=== PATIENT | male | born 1965 | race Hispanic/Latino ===

== ENCOUNTER 2024-11-15 13:56 | Inpatient (IN) | payer BC ==
--- OUTSIDE RECORDS SUMMARY | 2024-11-15 14:00 | XMS REPORT | Continuity of Care Document ---
Author Name Unknown Address [address] [facility] [address] [place] [address] Organization [facility] [place] Address [address] [facility] [address] [place] [address] Care Team Providers Care Licensed Optical Dispenser Name Role Phone Liza Rivas NP Primary Care Physician + HAY WILLARD Attending Clinician Shahana Willard III, MD, Hay [facility] HAY WILLARD Admitting Clinician Shahana Willard III, MD, Hay [facility]mitting [facility] Payers Payer Name Policy Type Policy Number Effective Date Expirati on Date Source BCBS COMM [id number] 2023 00:00:00 Problems Condition Name Condition Details Condition Category Status Onset Date Resolution Date Last Treatment Date Treating Clinician Comments Source HTN (hypertens ion) HTN (hypertens ion) Disease Active 2023-02 00:00: 00 Dereck Kelley Perforatio n of left tympanic membrane Perforatio n of left tympanic membrane Disease Active Dereck Kelley Conductive hearing loss, unilateral , left ear, with unrestrict ed hearing on the contralate ral side Conductive hearing loss, unilateral , left ear, with unrestrict ed hearing on the contralate ral side Disease Active Dereck Kelley Social History Social Habit Start Date Stop Date Quantity Comments Source Sexual orientation 2024-01-22 10:49:52 Heterosexual (finding) Adam Kelley Gender identity 2023-04-30 04:48:49 Identifies as male gender (finding) [facility] Alcoholic beverage intake 2024-01-22 00:00:00 2024-01-22 00:00:00 .29 /d [facility] History of Social function 2024-01-22 00:00:00 2024-01-22 00:00:00 [facility] Tobacco use and exposure 2024-01-15 00:00:00 2024-01-15 00:00:00 Smokeless tobacco non-user [facility] Smoking Status Start Date Stop Date Source Never smoked tobacco Dereck Mcgovern [facility] Medications Ordered Medication Name Filled Medication Name Start Date Stop Date Current Medication? Ordering Clinician Indication Dosage Frequency Signature (SIG) Comments Components Source HYDROcodone -acetaminop hen (Lowgap) 5-325 MG per tablet 1 tablet HYDROcodone -acetaminop hen (Lowgap) 5-325 MG per tablet 1 tablet 2023-02 15:45: 00 01-21 15:43 :00 No 1{tbl} 1 tablet, Oral, Once, On Mon01/22/24 at 1545, For 1 dose, Recovery (only) Dereck Kelley glucagon injection 1 mg glucagon injection 1 mg 2023-02 15:02: 41 Yes 1mg 1 mg, Intramuscu lar, As needed, For BG < 70 mg/dL if no IV access and patient is either Unconsciou s, unable to swallow or npo, Starting on Mon01/22/24 at 1502, Recovery (only), For BG < 70 mg/dL if no IV access and patient is either Unconsciou s, unable to swallow or npo and notify MD. Dereck Kelley dextrose 50 % solution 12.5 g dextrose 50 % solution 12.5 g 2023-02 15:02: 41 Yes 12.5g 12.5 g, Intravenou s, As needed, low blood sugar, if Blood Glucose 51- 69 mg/dL, Starting on Mon01/22/24 at 1502, Recovery (only), For BG 51-69 mg/dL and patient UNCONSCIOU S OR UNABLE TO SWALLOW OR NPO: Give 25 mL of D50W IV push and notify MD. Dereck Kelley ondansetron (Zofran) injection 4 mg ondansetron (Zofran) injection 4 mg 2023-02 15:02: 41 Yes 4mg 4 mg, Intravenou s, Once as needed, nausea, vomiting, Starting on Mon01/22/24 at 1502, For 1 dose, Recovery (only), May repeat once (maximum dose = 8mg). Do not repeat if patient has received Ondansetro n intraopera tively. Dereck Kelley albuterol (2.5 MG/3ML) 0.083% nebulizer solution 2.49 mg albuterol (2.5 MG/3ML) 0.083% nebulizer solution 2.49 mg 2023-02 15:02: 41 Yes 2.49mg 2.49 mg, Nebulizati on, Every 20 min PRN, wheezing, Starting on Mon01/22/24 at 1502, Recovery (only) Dereck Kelley naloxone (Narcan) injection 0.04 mg naloxone (Narcan) injection 0.04 mg 2023-02 15:02: 41 Yes .04mg 0.04 mg, Intravenou s, As needed, opioid reversal, every 2 minutes PRN to reverse sedation, Starting on Mon01/22/24 at 1502, For 8 doses, Recovery (only), Keep available for immediate use. Stop epidural infusion. Call Anesthesio logist STAT and Notify Pain Service (Dilute 0.4mg/mL in 9 mL saline) Dereck Kelley HYDROmorpho ne (Dilaudid) injection 0.5 mg HYDROmorpho ne (Dilaudid) injection 0.5 mg 2023-02 15:02: 41 Yes .5mg 0.5 mg, Intravenou s, Every 10 min PRN, severe pain (7-10), Starting on Mon01/22/24 at 1502, For 4 doses, Recovery (only), Hold for respirator y rate or 8 or less. Dereck Kelley fentaNYL (Sublimaze) injection 25 mcg fentaNYL (Sublimaze) injection 25 mcg 2023-02 15:02: 41 Yes 25ug 25 mcg, Intravenou s, Every 5 min PRN, moderate pain (4-6), Starting on Mon01/22/24 at 1502, For 4 doses, Recovery (only), Hold for respirator y rate of 8 or less. Dereck Kelley hydrALAZINE injection 10 mg hydrALAZINE injection 10 mg 2023-02 15:02: 41 Yes 10mg 10 mg, Intravenou s, Every 20 min PRN, high blood pressure, Systolic blood pressure greater than 160 mmHg and/or Diastolic blood pressure greater than 90 mmHg. Hold is Heart Rate greater than 100 beats per minute., Starting on Mon01/22/24 at 1502, For 2 doses, Recovery (only) Dereck Kelley diphenhydrA MINE (BENADryl) injection 12.5 mg diphenhydrA MINE (BENADryl) injection 12.5 mg 2023-02 15:02: 41 01-21 15:32 :00 No 12.5mg 12.5 mg, Intravenou s, Once as needed, itching, Starting on Mon01/22/24 at 1502, For 1 dose, Recovery (only) Dereck Kelley sodium chloride 0.9 % infusion sodium chloride 0.9 % infusion 2023-02 11:15: 00 Yes 75mL/h 75 mL/hr, Intravenou s, Continuous , Starting on Mon01/22/24 at 1115, Intraproce dure Dereck Kelley ofloxacin (Floxin) 0.3 % otic solution ofloxacin (Floxin) 0.3 % otic solution 2023-02 00:00: 00 02-20 23:59 :00 No 4[drp] Q.5D Administer 4 drops into the left ear in the morning and 4 drops in the evening. Dereck Kelley lisinopril 20 MG tablet lisinopril 20 MG tablet 2023-02 00:00: 00 Yes 20mg QD Take 20 mg by mouth 1 time each day. Dereck Kelley Vital Signs Vital Name Observation Time Observation Value Comments S elainecyndi Systolic blood pressure 2024-01-22 16:00:00 135 mm[Hg] [facility] Diastolic blood pressure 2024-01-22 16:00:00 93 mm[Hg] [facility] Heart rate 2024-01-22 16:00:00 93 /min [facility] Respiratory rate 2024-01-22 16:00:00 14 /min [facility] Oxygen saturation in Arterial blood by Pulse oximetry 2024-01-22 16:00:00 95 /min [facility] Body temperature 2024-01-22 14:25:00 36.28 [facility] Body height 2024-01-22 10:51:00 167.6 cm [facility] Body weight 2024-01-22 10:51:00 70.308 kg [facility] BMI 2024-01-22 10:51:00 25.02 kg/m2 [facility] Systolic blood pressure 2024-01-22 16:00:00 135 mm[Hg] [facility] Diastolic blood pressure 2024-01-22 16:00:00 93 mm[Hg] [facility] Heart rate 2024-01-22 16:00:00 93 /min [facility] Res[facility] rate 2024-01-22 16:00:00 14 /min [facility] Oxygen saturation in Arterial blood by Pulse oximetry 2024-01-22 16:00:00 95 /min [facility] Body temperature 2024-01-22 14:25:00 36.28 [facility] Body height 2024-01-22 10:51:00 167.6 cm [facility] Body weight 2024-01-22 10:51:00 70.308 kg [facility] BMI 2024-01-22 10:51:00 25.02 kg/m2 [facility] Procedures Procedure Date / Time Performed Performing Clinician Source POCT glucose meter docked device 2024-02-21 00:00:00 [facility] TYMPANOPLASTY 2024-01-22 12:12:00 Addy Willard [facility] Oxygen Therapy - Patient Type: Adult; Device: Simple Face Mask; Rate in liters per minute: 8 Lpm; Follow Respiratory Pathway: Yes [facility] Plan of Care Planned Activity Planned Date Details Comments Source Encounters Start Date/Time End Date/Time Encounter Type Admission Type Attending Clinicians Care Facility Care Department Encounter ID Source 2024-01-22 10:00:00 2024-01-22 16:05:00 Outpatient Elective HAY WILLARD [facility] [id number] [facility] 2024-01-22 10:00:00 2024-01-22 16:05:00 Hospital Encounter Hay Willard [facility] [id number] [facility] 2024-01-16 12:54:07 2024-01-16 13:14:09 Outpatient Elective [facility] [id number] E[facility] 2024-01-15 11:46:10 2024-01-15 11:52:44 Outpatient E[facility] [id number] EP History and Physical Notes Date/Time Note Provider Source 2024-01-22 10:03:49 History Of Present Illness Mark Kruse is a 58 y.o. male presenting with history of chronic otitis media as a child. He had bilateral myringotomy tubes placed. 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 The left middle ear will drain through the perforation periodically. He has to keep his ears dry to prevent infection in the left ear. He has a mild conductive hearing loss in the left ear due to the perforation. He is ready to proceed with surgical repair. Past Medical History He has a past medical history of Conductive hearing loss, unilateral, left ear, with unrestricted hearing on the contralateral side, Hypertension, and Perforation of left tympanic membrane. Surgical History He has a past surgical history that includes Colonoscopy. Family History Family History: Problem Relation Name Age of Onset Stroke Mother Heart attack Father Heart attack Brother Social History He reports that he has never smoked. He has never used smokeless tobacco. He reports current alcohol use of about 2.0 standard drinks of alcohol per week. He reports that he does not use drugs. Allergies Patient has no known allergies. Medications Medications Prior to Admission Medication Sig Dispense Refill Last Dose/Taking lisinopril 20 MG tablet Take 20 mg by mouth 1 time each day. 01/19/2024 Review of Systems Constitutional: Negative. HENT: Positive for ear discharge and hearing loss. Eyes: Negative. Respiratory: Negative. Cardiovascular: Negative. Gastrointestinal: Negative. Physical Exam: Constitutional: Appearance: Normal appearance. He is normal weight. HENT: Head: Normocephalic and atraumatic. Right Ear: Tympanic membrane, ear canal and external ear normal. Left Ear: Ear canal and external ear normal. Ears: Comments: 40% perforation in the inferior aspect of the pars tensa of the left tympanic membrane, left middle ear space clear Nose: Nose normal. Mouth/Throat: Mouth: Mucous membranes are moist. Eyes: Extraocular Movements: Extraocular movements intact. Pupils: Pupils are equal, round, and reactive to light. Cardiovascular: Rate and Rhythm: Normal rate and regular rhythm. Pulses: Normal pulses. Heart sounds: Normal heart sounds. Pulmonary: Effort: Pulmonary effort is normal. Breath sounds: Normal breath sounds. Abdominal: General: Abdomen is flat. Bowel sounds are normal. Palpations: Abdomen is soft. Musculoskeletal: Cervical back: Normal range of motion and neck supple. Neurological: Mental Status: He is alert. Last Recorded Vitals Blood pressure (!) 171/94, pulse 93, temperature 37.3 ?C (99.1 ?F), temperature source Tympanic, resp. rate 19, height 1.676 m (5' 6"), weight 70.3 kg (155 lb), SpO2 99%. Relevant Results Audiogram from 2021 shows a mild to moderate conductive hearing loss in the left tympanic membrane. Assessment & Plan Perforation of left tympanic membrane Conductive hearing loss, unilateral, left ear, with unrestricted hearing on the contralateral side HTN (hypertension) Plan to go to the operating room for a left-sided tympanoplasty. The risks and benefits were discussed. I will plan to discharge him home postoperatively. 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 Patient on theraputic antibiotics?: No Document Complications/Transfusions/Implants? None Procedure for cancer: Procedure for Cancer?: No Dictation number: N/A Findings: There was a 40% perforation in the inferior aspect of the pars tensa of the left tympanic membrane. There were synechiae a in the left middle ear space around the incudostapedial joint. The perforation was grafted in the medial technique using a true temporalis fascia graft. Disposition: PACU Condition: stable DIRECTOR [facility] Notes Date/Time Note Provider Source Referral ID Status Reason Start Date Expiration Date Visits Re quested Visits Authorized [id number] 1 1 [id number] 16:32:09* Audit-C Score Answer Date of Assessment Author 2 01/15/2024 11:42 AM EMS DIRECTOR Ngozi Faustin RN * [id number] 16:32:09* Hay Willard III, MD - 01/22/2024 2:24 PM EMS DIRECTOR Discharge Diagnosis Perforation of left tympanic membrane Hospital Course He underwent a left-sided tympanoplasty. He tolerated the procedure well. His pain was controlled and he tolerated an oral diet. Okay to discharge home postoperatively. Information Provided to Patient/Family I discussed with the patient/family details of the stay. See After Visit Summary which were reviewed and shared with patient/family. Operative Procedures Performed Procedure(s): TYMPANOPLASTY left Procedures As above Pertinent Physical Exam At Time of Discharge Physical Exam: Plastic dome dressing in place on the left ear Patient Condition at Discharge Stable Disposition Home [1] Discharge Medications New ofloxacin (Floxin) 0.3 % otic solution - 4 drop 2 times daily Continued lisinopril 20 MG tablet - 20 mg Daily Test Results Pending At Discharge Issues Requiring Follow-Up Postoperative audiogram Outpatient Follow-Up Dr. Willard in 1 week. DIRECTOR [id number] 16:32:09Scheduled Orders Scheduled Procedures Name Priority Associated Diagnoses Date/Ti me TYMPANOPLASTY Central perforation of tympanic membrane, left ear Conductive hearing loss, unilateral, left ear, with unrestricted hearing on the contralateral side 01/22/2024 12:12 PM EMS DIRECTOR Health Maintenance Due Date Last Done Comments CT Colonography 1964 Colonoscopy 1964 Colorectal Cancer Screening 1964 FIT-DNA 1964 FIT 1964 FOBT 1964 Lipid Panel 1964 Sigmoidoscopy 1964 Annual Physical 1967 DTaP/Tdap/Td Vaccines (1 - Tdap) 1983 Hepatitis B Vaccines (1 of 3 - 19+ 3-dose series) 1983 Zoster Vaccines (1 of 2) 2014 Influenza Vaccine Completed 10/20/2023 HIB Vaccines Aged Out No longer eligi ble based on patient's age to complete this topic HPV Vaccines Aged Out No longer eligi ble based on patient's age to complete this topic Hepatitis A Vaccines Aged Out No long er eligible based on patient's age to complete this topic IPV Vaccines Aged Out No longer eligi ble based on patient's age to complete this topic Meningococcal Vaccine Aged Out No melissa rebecca eligible based on patient's age to complete this topic Pneumococcal Vaccine: Pediat rics (0 to 5 Years) and At-Risk Patients (6 to 64 Years) Aged Out No longer eligible b ased on patient's age to complete this topic Rotavirus Vaccines Aged Out No longer eligible based on patient's age to complete this topic [id number] 16:32:09 Diagnosis Perforation of left tympanic membrane - Primary Conductive hearing loss, uni lateral, left ear, with unrestricted hearing on the contralateral side HTN (hypertension) Unspecified essential hypertension [id number] 16:32:09 [id number] 14:29:17 Images from the original note were not included. [id number] Anesthesia: General Anesthesia You?re due to have surgery. During surgery, you?ll be given medicine called anesthesia or anesthetic. This will keep you comfortable and pain-free. Your anesthesia provider will use general anesthesia . You are watched continuously during your procedure by your anesthesia provider. What is general anesthesia? General anesthesia puts you into a state like deep sleep. It goes into the bloodstream (IV anesthetics), into the lungs (gas anesthetics),or both. You feel nothing during the procedure. You won't remember it either. During the procedure, the anesthesia provider monitors you continuously. They track your heart rate and rhythm, blood pressure, breathing, and blood oxygen. ? IV anesthetics. IV anesthetics are given through an IV (intravenous) line in your arm. They?re often given first. This is so you're asleep before a gas anesthetic is started. Some kinds of IV anesthetics ease pain. Others relax you. Your healthcare provider will decide which kind is best in your case. ? Gas anesthetics. Gas anesthetics are breathed into the lungs. They're often used to keep you asleep. They can be given through a face mask. Or they can be given through a tube placed in your voice box (larynx) or breathing tube (trachea). o Face mask. Your anesthesia provider will most likely place the face mask over your nose and mouth while you?re still awake. You?ll breathe oxygen through the mask as your IV anesthetic is started. Gas anesthetic may be added through the mask. o Tube in the larynx or trachea. The tube will be inserted into your throat after you?re asleep. Anesthesia tools and medicines You will likely have: ? IV anesthetics. These are put into an IV line into your bloodstream. ? Gas anesthetics. You breathe these anesthetics into your lungs. Then they pass into your bloodstream. ? Pulse oximeter. This is a small clip that's attached to the end of your finger. It measures your blood oxygen level. ? Electrocardiography leads (electrodes). These are small sticky pads that are placed on your chest. They record your heart rate and rhythm. ? Blood pressure cuff. This reads your blood pressure. Risks and possible complications General anesthesia has some risks. These include: ? Breathing problems ? Upset stomach (nausea) and vomiting ? Sore throat or hoarseness (usually temporary) ? Allergic reaction to the anesthetic ? Irregular heartbeat (rare) ? Cardiac arrest (rare) Anesthesia safety ? Follow any directions you're given for not eating or drinking before your procedure. ? Tell your healthcare provider what medicines you take. This includes prescription and [id number] medicines. It also includes vitamins, herbs, and other supplements. You'll be asked when those were last taken. ? Have a trusted adult drive you home after the procedure. ? For the first 24 hours after your surgery: o Don't drive or use heavy equipment. o Don't make important decisions or sign legal documents. If important decisions or signing legal documents is necessary during the first 24 hours after surgery, have a trusted family member or spouse act on your behalf. o Don't drink alcohol. o Have a responsible adult stay with you. They can watch for problems and help keep you safe. Last Reviewed Date: 2023 00:00:00 ? [id number] [employer]. All rights reserved. This information is not intended as a substitute for professional medical care. Always follow your healthcare professional's instructions. [facility] General Surgery Registered NurseMemoridave [id number] 14:29:07 Images from the original note were not included. [id number] Fall Prevention Falls often take place due to slipping, tripping, or losing your balance. Millions of people fall every year and injure themselves. Among older adults in the [place] falls are the most common cause of traumatic brain injuries. Every 20 minutes, an older adult dies from a fall. Here are ways to reduce your risk of falling again: ? Think about your fall. Was there anything that caused your fall that can be fixed, removed, or replaced? ? Make your home safe by keeping walkways clear of objects you may trip over, such as electrical cords. ? Use nonslip pads under rugs. Don't use area rugs or small throw rugs. ? Use nonslip mats in bathtubs and showers. ? Hang grab rails by the toilet and inside and outside the shower. ? Install handrails and lights on staircases. The handrails should be on both sides of the stairs. ? Use night lights. ? Don't walk in poorly lit areas. ? Don't stand on chairs or wobbly ladders. ? Use care when reaching overhead or looking up. This position can cause a loss of balance. ? Be sure your shoes fit well, are in good condition, and have nonslip bottoms. ? Wear shoes both inside and outside of your home. Don't go barefoot or wear slippers. ? Be cautious when going up and down stairs, curbs, and when walking on uneven sidewalks. ? If your balance is poor, consider using a cane or walker. Talk with your healthcare provider about having a balance assessment. ? If your fall was related to alcohol use, stop or limit alcohol intake. Ask your provider for help if you think you may overuse alcohol and can't stop. ? If your fall was related to use of sleeping medicines, talk with your provider about this. You may need to reduce your dosage at bedtime if you wake up during the night to go to the bathroom. ? To reduce the need for nighttime bathroom trips: o Don't drink fluids for several hours before going to bed o Empty your bladder before going to bed o Men can keep a urinal at the bedside ? Stay as active as you can. Balance, flexibility, strength, and endurance all come from exercise. They all play a role in preventing falls. Ask your provider which types of activity are right for you. Try to do some type of exercise every day. ? Get your eyes checked once a year or more often if your vision changes ? If you have pets, know where they are before you stand up or walk so you don't trip over them. ? Go over all your medicines with a pharmacist or other provider. This is to see if any of them could make you more likely to fall. Have this type of medicine review at least once every year. ? If your provider advises a new medicine, ask if the side effects will affect your balance. ? Don't move quickly from one position to another. For instance, don't stand up fast from sitting. This can cause dizziness and may lead to a fall. ? Sit down when putting on pants, socks, and shoes. This will make you less likely to lose your balance and fall. ? Always let your provider know if you have fallen since your last visit. ? Contact your provider right away if you're having balance problems or falling more often. Last Reviewed Date: 2021 00:00:00 ? [id number] [employer]. All rights reserved. This information is not intended as a substitute for professional medical care. Always follow your healthcare professional's instructions. [facility] [id number] 14:28:54 Images from the original note were not included. [id number] Discharge Instructions for Tympanoplasty You had a procedure called tympanoplasty to fix a damaged eardrum, stop infection, and improve hearing. Here's what you need to do at home after this procedure. Home care ? Keep your head slightly elevated for the first 24 hours after you go home. ? Don't do anything that makes your ears pop. Don?t blow your nose or exhale with your nose held closed. ? Don't do activities that involve heavy lifting and straining. ? Sneeze with your mouth open. ? Shower as needed, starting 3 days after your surgery or when your healthcare provider says you can. You may let water run across any external wounds. But don?t scrub them. ? Keep the ear dry. You can place a cotton ball dabbed with a small amount of petroleum jelly in the outer ear to keep water out during a bath or shower. ? Get your healthcare provider's permission before doing strenuous exercises, such as weightlifting or swimming. ? Don't fly in a plane until your healthcare provider says it is OK to do so. ? Expect a small amount of drainage from the ear. ? Don't be alarmed if the skin of your outer ear is numb. This is a result of the surgery. The feeling should come back in a few months. ? Take your medicine exactly as your healthcare provider says. Follow-up care ? Make follow-up appointments as directed by our staff. Your ear has special packing material in it. Parts of this material may need to be removed at specific times. ? Ask your healthcare provider when you may go back to work. There may be special restrictions, depending upon the kind of work you do. When to seek medical care Call your healthcare provider right away if you have any of these: ? Ear pain ? Problems with balance or walking ? Increased redness or swelling around the ear ? Dizziness ? Foul-smelling drainage from the ear or the incision ? Persistent headache ? Double vision or blurred vision ? Fever of 100.4?F (38?C) or higher, or as directed by your healthcare provider ? Facial droop Last Reviewed Date: 2021 00:00:00 ? [id number] [employer]. All rights reserved. This information is not intended as a substitute for professional medical care. Always follow your healthcare professional's instructions. [facility] Adam Mcgovern
[2024-11-15] MEDS ORDERED: NA CHLORIDE 0.9% 500 ML ONE ×3 (14:17→17:15)
[2024-11-15] MEDS ORDERED: ASPIRIN 81 MG CHEWABLE TABLET ONE (14:17)
[2024-11-15 14:21] LABS: Absolute Lymphocytes (CBC) 2.0 K/uL (0.7-4.9); Hematocrit 37.5 % (39.6-49.0); Hemoglobin 12.3 g/dL (13.6-17.9); MCH 28.7 pg (27.0-35.0); MCHC 32.9 g/dL (32.0-36.0); MCV 87.2 fL (80-100); MPV 8.8 fL (7.6-11.3); Nucleated RBC Absolute Count 0.0 (0-0); Nucleated Red Blood Cells % 0.1 % (0-0); RBC Red Blood Cell Count 4.30 M/uL (4.33-5.43); White Blood Count 5.70 thou/uL (4.3-10.9)
[2024-11-15 14:29] LABS: PT Prothrombin Time 12.2 SECONDS (10-13.0); Protime INR 1.08
[2024-11-15 14:41] LABS: ALT/SGPT 24 U/L (16-61); AST/SGOT 24 U/L (15-37); Albumin 3.6 g/dL (3.4-5.0); Albumin/Globulin Ratio 1.1 (1.1-1.8); Alkaline Phosphatase 77 U/L (45-117); Anion Gap 9.4 mEq/L (5.0-15.0); BUN Blood Urea Nitrogen 22 mg/dL (7-18); Bilirubin Indirect, Calculated 0.3 mg/dL (0.2-0.8); Globulin 3.2 g/dL (2.3-3.5); Glucose Level 136 mg/dL (74-106); Lipase 32 U/L (13-75); Magnesium 1.9 mg/dL (1.6-2.4); NT PRO-BNP 326 pg/mL (<125); Potassium 3.4 mEq/L (3.5-5.1)
[2024-11-15 14:43] LABS: Troponin High Sensitivity 226.4 pg/mL (<58.9)
--- NOTE | 2024-11-15 14:49 | RAD REPORT ---
EXAMINATION: ONE VIEW CHEST XR CLINICAL INDICATION: CHEST PAIN TECHNIQUE: Frontal chest projection is submitted. Examination is limited by patient positioning and t echnique. COMPARISON: No prior exam. FINDINGS: The lungs are well inflated and clear. The heart is upper limit of normal in size. No displaced fract ures identified. IMPRESSION: No acute intrathoracic abnormalities.
--- NOTE | 2024-11-15 15:09 | EDPHYS ---
Physician Documentation [facility] Name: David Kruse Age: 59 yrs Sex: Male : 1965 Arrival Date: 11/15/2024 Time: 13:56 Bed 3 Private MD: ED Physician Tolu Alexandra HPI: 11/15 14:52 This 59 yrs old Male presents to ER via Ambulatory with complaints of Chest emery Pressure, Near Syncope. 14:52 The patient or guardian reports chest pain that is located primarily in the substernal emery area, anterior chest wall, bilaterally. Onset: just prior to arrival, today. The pain does not radiate. Associated signs and symptoms: Pertinent positives: lightheadedness, near-syncope, shortness of breath. The chest pain is described as aching, a pressure. Duration: The patient or guardian reports a single episode, that is still ongoing. Modifying factors: The symptoms are alleviated by nothing. the symptoms are aggravated by nothing. Severity of pain: At its worst the pain was moderate in the emergency department the pain has improved mildly. The patient has not experienced similar symptoms in the past. Historical: - Allergies: 14:04 No Known Allergies; me1 - Home Meds: 14:04 None [Active]; me1 - PMHx: 14:04 Hypertensive disorder; Hypercholesterolemia; me1 - PSHx: 14:04 left ear surgery; me1 - Immunization history:: Adult Immunizations up to date. - Infectious Disease History:: Denies. - Social history:: Smoking status: Patient denies any tobacco usage or history of. - Family history:: not pertinent. ROS: 14:52 Constitutional: Negative for fever, chills, and weight loss, Eyes: Negative for injury, emery pain, redness, and discharge, ENT: Negative for injury, pain, and discharge, Neck: Negative for injury, pain, and swelling, Respiratory: Negative for shortness of breath, cough, wheezing, and pleuritic chest pain, Abdomen/GI: Negative for abdominal pain, nausea, vomiting, diarrhea, and constipation, Back: Negative for injury and pain, : Negative for injury, bleeding, discharge, and swelling, MS/Extremity: Negative for injury and deformity, Skin: Negative for injury, rash, and discoloration, Neuro: Negative for headache, weakness, numbness, tingling, and seizure, Psych: Negative for depression, anxiety, suicide ideation, homicidal ideation, and hallucinations, Allergy/Immunology: Negative for hives, rash, and allergies, Endocrine: Negative for neck swelling, polydipsia, polyuria, polyphagia, and marked weight changes, Hematologic/Lymphatic: Negative for swollen nodes, abnormal bleeding, and unusual bruising, 14:52 Neck: Negative for injury or acute deformity, 14:52 Cardiovascular: Positive for chest pain, orthopnea, Exam: 14:52 Constitutional: This is a well developed, well nourished patient who is awake, alert, emery and in no acute distress. Head/Face: Normocephalic, atraumatic. Eyes: Pupils equal round and reactive to light, extra-ocular motions intact. Lids and lashes normal. Conjunctiva and sclera are non-icteric and not injected. Cornea within normal limits. Periorbital areas with no swelling, redness, or edema. ENT: Nares patent. No nasal discharge, no septal abnormalities noted. Tympanic membranes are normal and external auditory canals are clear. Oropharynx with no redness, swelling, or masses, exudates, or evidence of obstruction, uvula midline. Mucous membranes moist. Neck: Trachea midline, no thyromegaly or masses palpated, and no cervical lymphadenopathy. Supple, full range of motion without nuchal rigidity, or vertebral point tenderness. No Meningismus. Chest/axilla: Normal chest wall appearance and motion. Nontender with no deformity. No lesions are appreciated. Cardiovascular: Regular rate and rhythm with a normal S1 and S2. No gallops, murmurs, or rubs. Normal PMI, no JVD. No pulse deficits. Respiratory: Lungs have equal breath sounds bilaterally, clear to auscultation and percussion. No rales, rhonchi or wheezes noted. No increased work of breathing, no retractions or nasal flaring. Abdomen/GI: Soft, non-tender, with normal bowel sounds. No distension or tympany. No guarding or rebound. No evidence of tenderness throughout. Back: No spinal tenderness. No costovertebral tenderness. Full range of motion. Male : Normal genitalia with no discharge or lesions. Skin: Warm, dry with normal turgor. Normal color with no rashes, no lesions, and no evidence of cellulitis. MS/ Extremity: Pulses equal, no cyanosis. Neurovascular intact. Full, normal range of motion., bilateral aka Neuro: Awake and alert, GCS 15, oriented to person, place, time, and situation. Cranial nerves II-XII grossly intact. Motor strength 5/5 in all extremities. Sensory grossly intact. Cerebellar exam normal. Normal gait. Psych: Awake, alert, with orientation to person, place and time. Behavior, mood, and affect are within normal limits. 14:52 ECG was reviewed by the Attending Physician. Vital Signs: 14:02 BP 143 / 95; Pulse 64; Resp 19; Temp 97.8; Pulse Ox 100% ; Weight 70.31 kg; Height 5 me1 ft. 6 in. ; Pain 8/10; 14:10 BP 147 / 91; Pulse 66; Resp 16; Pulse Ox 98% on R/A; db 14:30 BP 136 / 91; Pulse 61; Resp 18; Pulse Ox 100% on R/A; db 15:00 BP 133 / 79; Pulse 57; Resp 18; Pulse Ox 100% on R/A; db 14:02 Body Mass Index 25.02 (70.31 kg, 167.64 cm) me1 14:02 Pain Scale: Adult me1 MDM: 14:03 Medical Screening Exam initiated emery 14:57 Differential diagnosis: abnormal EKG, acute myocardial infarction, acute pericarditis, emery anxiety, chest wall pain, cholecystitis, Cholelithiasis costochondritis, esophagitis, gastritis, gastroesophageal reflux disease (GERD), herpes zoster, hiatal hernia, pancreatitis, peptic ulcer disease, pericarditis, pleurisy, pneumonia, pneumothorax, pulmonary embolus, stable angina, thoracic aortic disection, unstable angina. HEART Score: History: Moderately Suspicious (1), ECG: Non specific repolarization disturbance / LBTB / PM (1), Age: > 45 and < 65 years (1), Risk Factors: > or = 3 Risk factors for atherosclerotic disease (2), [Hypercholesterolemia] [Hypertension] [+ Family HX] Troponin: > or = 3 x Normal Limit (2), Total Score = 7. The patient was given aspirin in the Emergency Department. RENU Risk Score: 1 - Three or more CAD risk factors, 1 - Recent [<24hrs] Severe Angina, 1 - Elevated Cardiac Markers, TOTAL SCORE = 3. Data reviewed: vital signs, nurses notes, lab test result(s), EKG, radiologic studies, plain films. Consideration of Admission/Observation Patient was admitted/placed on observation. Escalation of care including admission/observation considered. I considered the following discharge prescriptions or medication management in the emergency department Medications were administered in the Emergency Department. See MAR. Independent interpretation of the following test(s) in the Emergency Department EKG: See my EKG interpretation above. Test considered but Not performed: Ultrasound NO 2 . Historians other than the Patient: Spouse/Significant Other: WELL INFORMED. Care significantly affected by the following chronic conditions: Hypertension, HIGH CHLESTEROL. Counseling: I had a detailed discussion with the patient and/or guardian regarding the historical points, exam findings, and any diagnostic results supporting the discharge/admit diagnosis, the presence of at least one elevated blood pressure reading (>120/80) during this emergency department visit, lab results, the need for further work-up and treatment in the hospital. 11/15 14:06 Order name: Basic Metabolic Panel; Complete Time: 14:47 [facility] 11/15 14:06 Order name: CBC with Diff; Complete Time: 14:47 [facility] 11/15 14:06 Order name: LFT's; Complete Time: 14:47 [facility] 11/15 14:06 Order name: Magnesium; Complete Time: 14:47 [facility] 11/15 14:06 Order name: NT PRO-BNP; Complete Time: 14:47 [facility] 11/15 14:06 Order name: PT-INR; Complete Time: 14:47 [facility] 11/15 14:06 Order name: Troponin HS; Complete Time: 14:47 [facility] 11/15 14:06 Order name: Lipase; Complete Time: 14:47 [facility] 11/15 14:06 Order name: UA Rfx Jimbo Cult if indicated [facility] 11/15 14:51 Order name: Ptt, Activated db 11/15 14:06 Order name: XRAY Chest (1 view); Complete Time: 14:52 [facility] 11/15 14:06 Order name: Cardiac monitoring; Complete Time: 14:18 [facility] 11/15 14:06 Order name: EKG - Nurse/Tech; Complete Time: 14:18 [facility] 11/15 14:06 Order name: IV Saline Lock; Complete Time: 14:21 [facility] 11/15 14:06 Order name: Labs collected and sent; Complete Time: 14:21 [facility] 11/15 14:06 Order name: O2 Per Protocol; Complete Time: 14:18 emery 11/15 14:06 Order name: O2 Sat Monitoring; Complete Time: 14:18 [facility] EC:52 Rate is 61 beats/min. QRS [place] is Normal. WI interval is normal. QRS interval is emery normal. QT interval is normal. No Q waves. T waves are Normal. No ST changes noted. Clinical impression: Normal ECG and No evidence of ischemia. Interpreted by me. Reviewed by me. Administered Medications: 14:17 Drug: Aspirin PO Chewable Tablet 324 mg PO once; 81 mg tablets x 4 Route: PO; db 15:37 Follow up: Response: No adverse reaction db 14:18 Drug: NS 0.9% IV 500 ml 500 ml IV at 1 bolus once; to be given as a bolus over 30 db minutes Volume: 500 ml; Route: IV; Rate: 1 bolus; Site: left antecubital; 15:36 Follow up: Response: No adverse reaction; IV Status: Completed infusion; IV Intake: db 500ml 15:19 Drug: Heparin ([place]-Bolus No thrombolytic) - HEParin IVP 60 units/kg IVP once; Max 5000 db units {Co-Signature: iw (Jenn Hawkins RN).} Route: IVP; Site: left antecubital; 15:36 Follow up: Response: No adverse reaction db 15:20 Not Given (cancelled per cardiologistt): Heparin ([place] Drip) - ([id number] units, db [id number] ml) 12 units/kg/hr IV at calculated rate Per protocol; Max initial rate 1000 units/hr 15:20 Drug: NS 0.9% IV 1000 ml IV at 125 ml/hr once Route: IV; Rate: 125 ml/hr; Site: left db antecubital; 15:36 Follow up: Response: No adverse reaction; IV Status: Infusion continued upon admission db 15:32 Not Given (PER CARDIOLOGYy): [id number] mg PO once db 15:32 Not Given (Patient Refused): morphineor iv 2 mg IVP once over 4 mins db 15:32 Not Given (Patient Refused; NOT GIVEN ): ondansetron 4 mg IVP once; over 2 minutes db 15:32 Not Given (Patient Refused): [id number] mg IVP once; dilute with 10 mL 0.9% NaCl; db give over 2 minutes 15:32 Not Given (Patient Refused): morphineor iv 2 mg IVP once over 4 mins db Disposition: 15:47 Critical Care:. emery Disposition Summary: 11/15/24 15:08 Hospitalization Ordered Notes: Hospitalization Status: Inpatient Admission emery Provider: Prince emery Yin Location: Telemetry/MedSurg (Inpatient) emery Condition: Fair emery Problem: new emery Symptoms: have improved emery Bed/Room Type: Standard emery Room Assignment: emery Diagnosis - Non ST elevation [place] emery - Chest pain, unspecified emery - Dyspnea emery - Hypokalemia emery Forms: - Medication Reconciliation Form emery - SBAR form emery - Leadership Thank You Letter emery Critical care time excluding procedures: 15:47 Critical care time: Bedside Care: 30 minutes, Consultation: 15 minutes, Family emery Intervention: 10 minutes. Total time: 55 minutes Signatures: Dispatcher [employer] EDTolu Blanchard MD MD cha Benton, Danielle, RN RN db Eddleman, Michelle, RN RN me1 Jenn Hawkins RN iw Corrections: (The following items were deleted from the chart) 14:06 14:06 BASIC METABOLIC PANEL+C.LAB.BRZ ordered. EDMS EDMS 14:06 14:06 CBC+H.LAB.BRZ ordered. EDMS EDMS 14:06 14:06 HEPATIC FUNCTION+C.LAB.BRZ ordered. EDMS EDMS 14:06 14:06 MAGNESIUM+C.LAB.BRZ ordered. EDMS EDMS 14:06 14:06 PROBNP+C.LAB.BRZ ordered. EDMS EDMS 14:06 14:06 PROTIME (+INR)+COAG.LAB.BRZ ordered. EDMS EDMS 14:06 14:06 Troponin High Sensitivity+C.LAB.BRZ ordered. EDMS EDMS 14:06 14:06 LIPASE+C.LAB.BRZ ordered. EDMS EDMS 14:06 14:06 UA Rfx Jimbo Cult if indicated+U.LAB.BRZ ordered. EDMS EDMS 14:06 14:06 Chest Single View+RAD.RAD.BRZ ordered. EDMS EDMS
--- NOTE | 2024-11-15 15:09 | ER ---
Nurse's Notes [facility] Name: David Kruse Age: 59 yrs Sex: Male : 1965 Arrival Date: 11/15/2024 Time: 13:56 Bed 3 Private MD: Diagnosis: Non ST elevation [place];Chest pain, unspecified;Dyspnea;Hypokalemia Presentation: 11/15 14:02 Chief complaint: Patient states: Sudden onset of lightheadedness, near syncope, me1 diaphoresis, nausea, chest pressure and sob. 09/15. Patient had been working out in the heat. Coronavirus screen: Vaccine status: Patient reports receiving the 2nd dose of the covid vaccine. Ebola Screen: No symptoms or risks identified at this time. Initial Sepsis Screen: Does the patient meet any 2 criteria? No. Patient's initial sepsis screen is negative. Does the patient have a suspected source of infection? No. Patient's initial sepsis screen is negative. Risk Assessment: Do you want to hurt yourself or someone else? Patient reports no desire to harm self or others. Onset of symptoms was November 15, 2024 at 13:30. 14:02 Method Of Arrival: Ambulatory me1 14:02 Acuity: SKYLAR 3 me1 Historical: - Allergies: 14:04 No Known Allergies; me1 - Home Meds: 14:04 None [Active]; me1 - PMHx: 14:04 Hypertensive disorder; Hypercholesterolemia; me1 - PSHx: 14:04 left ear surgery; me1 - Immunization history:: Adult Immunizations up to date. - Infectious Disease History:: Denies. - Social history:: Smoking status: Patient denies any tobacco usage or history of. - Family history:: not pertinent. Screenin:22 [facility] ED Fall Risk Assessment (Adult) History of falling in the last 3 months, db including since admission No falls in past 3 months (0 pts) Confusion or Disorientation No (0 pts) Intoxicated or Sedated No (0 pts) Impaired Gait No (0 pts) Mobility Assist Device Used No (0 pt) Altered Elimination No (0 pt) Score/Fall Risk Level 0 - 2 = Low Risk Oriented to surroundings, Maintained a safe environment. Abuse screen: Denies threats or abuse. Denies injuries from another. Nutritional screening: No deficits noted. Tuberculosis screening: No symptoms or risk factors identified. Assessment: 14:22 Reassessment: Patient appears in no apparent distress at this time. Patient and/or db family updated on plan of care and expected duration. Pain level reassessed. Patient is alert, oriented x 3, equal unlabored respirations, skin warm/dry/pink. General: Appears in no apparent distress. comfortable, Behavior is calm, cooperative. Pain: Complains of pain in chest Pain does not radiate. Pain began suddenly. Neuro: Level of Consciousness is awake, alert, obeys commands, Oriented to person, place, time, situation. Cardiovascular: Reports chest pain. Respiratory: Airway is patent Respiratory effort is even, unlabored, Respiratory pattern is regular, symmetrical. 15:20 Reassessment: CARDIOLOGY AT PATIENT BEDSIDE. HEPARIN INFUSION NOT STARTED PER db CARDIOLOGY. CLOPIDOGREL NOT GIVEN PER CARDIOLOGY. Patient denies pain at this time. 15:34 Reassessment: Patient appears in no apparent distress at this time. Patient and/or db family updated on plan of care and expected duration. Pain level reassessed. Patient is alert, oriented x 3, equal unlabored respirations, skin warm/dry/pink. [employer] VESSEL OPERATOR RN ARRIVED AND AT PATIENT BEDSIDE. Vital Signs: 14:02 BP 143 / 95; Pulse 64; Resp 19; Temp 97.8; Pulse Ox 100% ; Weight 70.31 kg; Height 5 me1 ft. 6 in. ; Pain 8/10; 14:10 BP 147 / 91; Pulse 66; Resp 16; Pulse Ox 98% on R/A; db 14:30 BP 136 / 91; Pulse 61; Resp 18; Pulse Ox 100% on R/A; db 15:00 BP 133 / 79; Pulse 57; Resp 18; Pulse Ox 100% on R/A; db 14:02 Body Mass Index 25.02 (70.31 kg, 167.64 cm) me1 14:02 Pain Scale: Adult ms1 ED Course: 14:00 Patient arrived in ED. cj3 14:03 Tolu Alexandra MD is Attending Physician. [facility] 14:04 Triage completed. me1 14:04 Arm band placed on Patient placed in an exam room. me1 14:08 Jihan Caldera, RN is Primary Nurse. 14:15 Initial lab(s) drawn, by ms, sent to lab. Inserted saline lock: 20 gauge in left db antecubital area, using aseptic technique. Blood collected. Flushed with 10 mL NS. 14:18 EKG done, by ED staff, reviewed by Tolu Alexandra MD. em1 14:22 Patient has correct armband on for positive identification. Bed in low position. Call db light in reach. Side rails up X 1. Provided Education on: DISCHARGE. Client placed on continuous cardiac and pulse oximetry monitoring. NIBP monitoring applied. security monitor on. Pulse ox on. NIBP on. 14:31 XRAY Chest (1 view) In Process Unspecified. EDMS 15:07 Prince Yin MD is Hospitalizing Provider. emery 15:35 Warm blanket given. Pillow given. db 15:35 No provider procedures requiring assistance completed. Patient admitted, IV remains in db place. Patient maintains SpO2 saturation greater than 95% on room air. Administered Medications: 14:17 Drug: Aspirin PO Chewable Tablet 324 mg PO once; 81 mg tablets x 4 Route: PO; db 15:37 Follow up: Response: No adverse reaction db 14:18 Drug: NS 0.9% IV 500 ml 500 ml IV at 1 bolus once; to be given as a bolus over 30 db minutes Volume: 500 ml; Route: IV; Rate: 1 bolus; Site: left antecubital; 15:36 Follow up: Response: No adverse reaction; IV Status: Completed infusion; IV Intake: db 500ml 15:19 Drug: Heparin ([place]-Bolus No thrombolytic) - HEParin IVP 60 units/kg IVP once; Max 5000 db units {Co-Signature: iw (Jenn Hawkins RN).} Route: IVP; Site: left antecubital; 15:36 Follow up: Response: No adverse reaction db 15:20 Not Given (cancelled per cardiologistt): Heparin ([place] Drip) - ([id number] units, db [id number] ml) 12 units/kg/hr IV at calculated rate Per protocol; Max initial rate 1000 units/hr 15:20 Drug: NS 0.9% IV 1000 ml IV at 125 ml/hr once Route: IV; Rate: 125 ml/hr; Site: left db antecubital; 15:36 Follow up: Response: No adverse reaction; IV Status: Infusion continued upon admission db 15:32 Not Given (PER CARDIOLOGYy): [id number] mg PO once db 15:32 Not Given (Patient Refused): morphineor iv 2 mg IVP once over 4 mins db 15:32 Not Given (Patient Refused; NOT GIVEN ): ondansetron 4 mg IVP once; over 2 minutes db 15:32 Not Given (Patient Refused): [id number] mg IVP once; dilute with 10 mL 0.9% NaCl; db give over 2 minutes 15:32 Not Given (Patient Refused): morphineor iv 2 mg IVP once over 4 mins db Medication: 14:22 VIS not applicable for this client. db Intake: 15:36 IV: 500ml; Total: 500ml. db Outcome: 15:08 Decision to Hospitalize by Provider. emery 15:35 Admitted to [facility] accompanied by nurse, on monitor, with chart, db 15:35 Condition: stable 15:35 Instructed on the need for admit, 15:50 Patient left the ED. db Signatures: Dispatcher [employer] Tolu Daniel MD MD cha Martinez, Eric em1 Jihan Caldera, RN RN db Monet Corey, PEDRO RN ms1 Patti Joe cj3 Jenn Hawkins RN
[2024-11-15] MEDS ORDERED: CLOPIDOGREL 75 MG TABLET ONE ×2 (15:11→15:33)
[2024-11-15] MEDS ORDERED: HEPARIN 5000 UNIT/ML 1 ML VIAL ONE ×2 (15:11→15:33)
[2024-11-15] MEDS ORDERED: ONDANSETRON 4 MG/2 ML VIAL ONE ×3 (15:11→17:22)
[2024-11-15] MEDS ORDERED: MORPHINE 4 MG/ML SYR ONE (15:11)
[2024-11-15] MEDS ORDERED: HEPARIN/D5W 25,000 UNIT/500 ML BAG IV ONE (15:12)
[2024-11-15] MEDS ORDERED: NA CHLORIDE 0.9% 1,000 ML ONE (15:12)
[2024-11-15] MEDS ORDERED: FAMOTIDINE 20 MG/2 ML VIAL IV ONE (15:12)
[2024-11-15] MEDS ORDERED: LIDOCAINE 1% 20 ML MDV ONE (15:32)
[2024-11-15] MEDS ORDERED: HEPARIN 10,000 UNIT/10 ML VIAL IV ONE (15:32)
[2024-11-15] MEDS ORDERED: ATROPINE SULF 1 MG/10 ML SYR IV ONE (15:32)
[2024-11-15] MEDS ORDERED: VERAPAMIL HCL 10 MG/4 ML VIAL IV ONE (15:32)
[2024-11-15] MEDS ORDERED: HEPA 1000U/500MLS 2,000 UNIT/1,000 ML BAG IV ONE (15:32)
[2024-11-15] MEDS ORDERED: TICAGRELOR 90 MG TABLET PO ONE ×2 (15:33→17:17)
[2024-11-15] MEDS: FENTANYL CITR 100 MCG/2 ML ONE (15:37)
[2024-11-15] MEDS: MIDAZOLAM HCL 2 MG/2 ML INJ ONE (15:37)
--- NOTE | 2024-11-15 15:45 | P.CNS ---
Date of Consult: 11/15/24 Reason for Consult: NSTEMI Requesting Physician: Tolu Alexandra Chief Complaint: Chest pain History of Present Illness: 59-year-old male with PMH HTN (on lisinopril), HLD (on atorvastatin), history of remote tobacco use, who presents with substernal chest discomfort while driving at 1:30 PM. Chest pain has since improved slightly, but persists. Chest pain was associated with diaphoresis and lightheadedness/dizziness. Patient denies any prior episodes. Endorses strong family history of CAD, including father with ID and CABG age 60. In the ED, ECG unremarkable. High-sensitivity cardiac troponin 226. NT proBNP 326. Creatinine 0.97. Hemoglobin 12.3. Patient's at bedside. Patient was given aspirin 324 mg and IV heparin bolus 5000 units. Allergies No Known Allergies Allergy (Unverified 11/15/24 15:44) Home medications list reviewed: Yes (Lisinopril and atorvastatin) - Past Medical/Surgical History Diabetic: No - Social History Smoking Status: Former smoker Alcohol use: No Physical Examination BP 143 / 95; Pulse 64; Resp 19; Temp 97.8; Pulse Ox 100% ; Weight 70.31 kg; Height 5 ft. 6 in General: Alert, Oriented x3, Mild distress HEENT: Atraumatic, Normocephalic, EOMI Neck: Supple, JVD not distended Respiratory: Clear to auscultation bilaterally Cardiovascular: No edema, Normal S1 S2, No murmurs Gastrointestinal: Normal bowel sounds Musculoskeletal: No clubbing, No swelling Integumentary: No rashes Neurological: Normal speech Laboratory Data (last 24 hrs) 11/15/24 11/15/24 11/15/24 14:14 14:14 14:14 WBC 5.70 Hgb 12.3 L Hct 37.5 L Plt Count 249 PT 12.2 INR 1.08 APTT 28.1 Sodium Potassium BUN Creatinine Glucose Magnesium Total Bilirubin AST ALT Alkaline Phosphatase Lipase 11/15/24 14:14 WBC Hgb Hct Plt Count PT INR APTT Sodium 139 Potassium 3.4 L BUN 22 H Creatinine 0.97 Glucose 136 H Magnesium 1.9 Total Bilirubin 0.5 AST 24 ALT 24 Alkaline Phosphatase 77 Lipase 32 Imagings Data: ECG and imaging reviewed - Problems (1) NSTEMI (non-ST elevated myocardial infarction) Current Visit: Yes Status: Acute Plan: Given the patient's persistent chest discomfort and elevated troponins, recommend urgent cardiac catheterization with possible PCI. S/P aspirin 325 mg x 1, IV heparin 5000 units x 1. Start atorvastatin 80 mg daily. I discussed the indication, risks, benefits, and alternatives of coronary angiography, left heart catheterization, and possible percutaneous coronary intervention with the patient. Risks reviewed included bleeding, vascular injury, infection, allergic reaction, arrhythmia, myocardial infarction, stroke, emergency surgery, and . The patient verbalized understanding, had the opportunity to ask questions, and provided informed consent. (2) Hypertension Current Visit: Yes Status: Chronic Plan: Controlled. Chronic. Resume home lisinopril. (3) Hyperlipidemia Current Visit: Yes Status: Acute Plan: Chronic. On atorvastatin at home. Obtain lipid profile and A1c. Increase home dose of atorvastatin to 80 mg daily for now.
[2024-11-15] MEDS ORDERED: ONDANSETRON 4 MG/2 ML VIAL IV PRN (16:34)
[2024-11-15] MEDS ORDERED: NITROPRUSSIDE 50 MG VIAL IV ONE (16:47)
[2024-11-15] MEDS: NA CHLORIDE 0.9% 250 ML ONE (16:49)
[2024-11-15] MEDS ORDERED: Phenylephrine HCl 10 MG/ML 1 ML VIAL ONE (16:54)
--- NOTE | 2024-11-15 17:38 | P.HP ---
Certification for Inpatient With expected LOS: >2 Midnights Patient will require the following post-hospital care: Rehabilitation Practitioner: I am a practitioner with admitting privileges, knowledge of patient current condition, hospital course, and medical plan of care. Services: Services provided to patient in accordance with Admission requirements found in Title 42 Section 412.3 of the Code of Federal Regulations Patient History Date of Service: 11/15/24 Reason for admission: Chest pain History of Present Illness: Patient is a 59yo/M with PMH of HTN, HLD, and remote tobacco use, who presents to the ED with substernal chest discomfort while driving at 1:30 PM. Chest pain had since improved slightly, but persisted while in ED. Chest pain was associated with diaphoresis and lightheadedness/dizziness and patient denied any prior episodes. In the ED, ECG was unremarkable, troponin 226, BNP 326, Creatinine 0.97, Hgb 12.3 and CXR without acute findings. Patient was given aspirin 324 mg and IV heparin bolus 5000 units. Cardiology was consulted with recs for urgent cardiac cath and patient now being admitted to medicine service for NSTEMI. Allergies No Known Allergies Allergy (Unverified 11/15/24 15:44) - Past Medical/Surgical History Diabetic: No -: HTN -: Hyperlipidemia Past Surgical History: Patient denies surgical history - Social History Smoking Status: Former smoker Alcohol use: No Place of Residence: Home Review of Systems Cardiovascular: Chest Pain, Light Headedness Physical Examination - Physical Exam General: Alert, In no apparent distress HEENT: Atraumatic, PERRLA, Mucous membr. moist/pink, EOMI, Sclerae nonicteric Neck: Supple, 2+ carotid pulse no bruit, No LAD, Without JVD or thyroid abnormality Respiratory: Clear to auscultation bilaterally, Diminished Cardiovascular: Regular rate/rhythm, Normal S1 S2 Capillary refill: <2 Seconds Gastrointestinal: Normal bowel sounds, No tenderness Musculoskeletal: No tenderness Integumentary: No rashes Neurological: Normal gait, Normal speech, Normal strength at 5/5 x4 extr, Normal tone, Normal affect Lymphatics: No axilla or inguinal lymphadenopathy - Studies Laboratory Data (last 24 hrs) 11/15/24 11/15/24 11/15/24 14:14 14:14 14:14 WBC 5.70 Hgb 12.3 L Hct 37.5 L Plt Count 249 PT 12.2 INR 1.08 APTT 28.1 Sodium Potassium BUN Creatinine Glucose Magnesium Total Bilirubin AST ALT Alkaline Phosphatase Lipase 11/15/24 14:14 WBC Hgb Hct Plt Count PT INR APTT Sodium 139 Potassium 3.4 L BUN 22 H Creatinine 0.97 Glucose 136 H Magnesium 1.9 Total Bilirubin 0.5 AST 24 ALT 24 Alkaline Phosphatase 77 Lipase 32 Assessment and Plan - Plan Patient is a 59yo/M with PMH of HTN, HLD, and remote tobacco use, who presents to the ED with sub-sternal chest discomfort NSTEMI - CXR without acute finding - EKG unremarkable - Troponin 226, BNP 326 - Received aspirin 324 mg and IV heparin bolus while in the ED - Cardiology Dr. Cunningham consulted while in ED and patient taken for urgent cath - N.p.o. for now - Patient to be monitored in ICU post-surgery per cardiology - Continue to monitor electrolytes - Follow-up with cardiology for post-surgical recommendations History of hypertension History of hyperlipidemia - Continue home medications lisinopril and atorvastatin once verified and appropriate - Monitor blood pressure closely - Cardiac diet once patient is able to have p.o. intake DVT Ppx: SCDs for now Code Status: Full Code Discharge Plan: Home Plan to discharge in: Greater than 2 days - Advance Directives Does patient have a Living Will: No Does patient have a Durable POA for Healthcare: No - Code Status/Comfort Care Code Status Assessed: Yes (Full Code)
--- NOTE | 2024-11-15 19:15 | P.OP ---
Date of Service: 11/15/24 Procedures Performed: Right radial artery access (ultrasound-guided) Right common femoral artery access (ultrasound-guided) Coronary angiography Left heart catheterization Percutaneous Coronary Intervention Moderate sedation TR band application Vascular closure device (Angio-Seal) Indication: High risk NSTEMI. Pre-procedure Diagnosis: NSTEMI. Post-procedure Diagnosis: NSTEMI. Consent: Informed consent was obtained after discussion of risks, benefits, and alternatives. Sedation and Anesthesia: ASA Classification II. Moderate sedation was provided using IV midazolam 2 mg mg and IV fentanyl 50 mcg. Sedation began at 4:12 PM and ended at 5:30 PM, for a total duration of 78 min. Continuous hemodynamic, respiratory, pulse oximetry, and level of consciousness monitoring was performed throughout the procedure in accordance with hospital policy. The patient tolerated sedation well without adverse events. Procedure Description: The patient was prepped and draped in the usual sterile fashion, and a procedural time-out confirmed patient identity, procedure, and site. Ultrasound-guided vascular access was obtained via the right radial artery using a 6 [place]guillan sheath. However, the patient experienced discomfort and radial artery spasm with diagnostic catheter advancement, for which decision was made to switch access to the right groin. Ultrasound vascular access was obtained via the right common femoral artery using a 6 Anguillan sheath. Under fluoroscopic guidance, a 6 [place]guill[place] JL 3.5 catheter was advanced over wire and selective angiography of the LM, LAD, and LCx arteries was obtained in standard projections. After this, the catheter was exchanged for a 6 [place]gu[place]an diagnostic catheter and advanced over a wire under fluoroscopic guidance to the left ventricle, left heart catheterization was performed, and the LVEDP was measured at 5 mmHg. The catheter was slowly pulled back across the aortic valve and any trans-aortic gradient was assessed. Selective RCA coronary angiography was performed. Following diagnostic angiography, attention was turned to percutaneous coronary intervention. A 6 [place]an IM guide catheter was advanced to the RCA over a guidewire under fluoroscopic guidance. The lesion in the distal RCA was crossed with a 0.014 inch run-through guidewire. Given visible thrombus, pre-dilation was not performed. Direct stenting by deployment of a Synergy 3.5 x 20 mm KELSEY at 16 roxanne, achieving 0% residual stenosis with RENU 3 flow. Post-dilation with a noncompliant 3.75 x 15 mm balloon was performed. Final angiography confirmed optimal stent expansion and no complications. All equipment was removed, and hemostasis was obtained with TR band (right wrist) and Angio-Seal (right groin). Episodes of hypotension, nausea, bradycardia, and chest pain during PCI required administration of phenylephrine, nitroprusside, Zofran, atropine (refer to nursing documentation). The patient tolerated the intervention well without any immediate complications. Chest pain-free postprocedure. Coronary Findings: - Right dominant system. - Left Main (LM): Mild disease. - Left Anterior Descending (LAD): Large-caliber vessel. Proximal 30-40% stenosis. Mid 40-50% stenosis at bifurcation with D2, which has ostial 50% stenosis. D1 is a small vessel with mild disease. - Ramus intermedius (RI): Moderate to large caliber vessel with ostial 50-60% stenosis. - Left Circumflex (LCx): Large-caliber, nondominant vessel with mild disease. Contributes [id number] collaterals to the RCA AV continuation. - Right Coronary Artery (RCA): Large caliber, dominant vessel with mild disease from proximal to mid. Distal segment has 99% acute thrombotic occlusion. PCI Summary: Successful PCI of distal RCA with a 3.5 x 20 mm KELSEY, post-dilated with a 3.75 x 15 mm balloon, with excellent angiographic result. Complications: None. Estimated Blood Loss: < 10 mL. Post-procedure Plan: The patient will be monitored in the recovery area per protocol. Admit to ICU for post NSTEMI care. Continue dual antiplatelet therapy and guideline-directed medical therapy including aspirin 81 mg daily and ticagrelor 90 mg twice daily for 1 year. High-intensity statin therapy. Obtain echocardiogram and metabolic profile. Aggressive lifestyle and risk factor modification.
[2024-11-15 19:31] VITALS: BMI 24.7
[2024-11-15] MEDS: NA CHLORIDE 0.9% 1,000 ML IV SCH (20:20)
[2024-11-15] MEDS: ATORVASTATIN 40 MG TAB PO SCH (20:21)
[2024-11-15] MEDS: TICAGRELOR 90 MG TABLET PO SCH (20:21)
[2024-11-15] MEDS ORDERED: NA CHLORIDE 0.9% 1,000 ML IV SCH (20:37)
[2024-11-15] MEDS ORDERED: SODIUM CHLORIDE 0.9% 10ML INJ IV PRN (20:38)
[2024-11-15] MEDS: PANTOPRAZOLE 40 MG INJ IVP ONE ×2 (20:38→20:50)
[2024-11-15] MEDS ORDERED: ATORVASTATIN 40 MG TAB PO SCH (21:00)
[2024-11-15] MEDS ORDERED: TICAGRELOR 90 MG TABLET PO SCH (21:00)
[2024-11-15] MEDS: KCL 20 MEQ/100 mL IVPB 20 MEQ/100 ML BAG IV SCH (23:38)
[2024-11-15 23:56] LABS: Urine Microscopic Reflex YN NO UMIC
[2024-11-16] MEDS: POTASSIUM CL SA 10 MEQ TAB PO ONE (00:21)
[2024-11-16 05:32] LABS: Absolute Lymphocytes (CBC) 0.9 K/uL (0.7-4.9); Hematocrit 34.5 % (39.6-49.0); Hemoglobin 11.9 g/dL (13.6-17.9); MCH 29.5 pg (27.0-35.0); MCHC 34.5 g/dL (32.0-36.0); MCV 85.7 fL (80-100); MPV 8.6 fL (7.6-11.3); Nucleated RBC Absolute Count 0.0 (0-0); Nucleated Red Blood Cells % 0.1 % (0-0); RBC Red Blood Cell Count 4.02 M/uL (4.33-5.43); White Blood Count 4.70 thou/uL (4.3-10.9)
[2024-11-16 05:48] LABS: ALT/SGPT 23.0 U/L (16-61); AST/SGOT 30.0 U/L (15-37); Albumin 3.4 g/dL (3.4-5.0); Albumin/Globulin Ratio 1.3 (1.1-1.8); Alkaline Phosphatase 68.0 U/L (45-117); Anion Gap 7.5 mEq/L (5.0-15.0); BUN Blood Urea Nitrogen 12.0 mg/dL (7-18); Globulin 2.7 g/dL (2.3-3.5); Glucose Level 98.0 mg/dL (74-106); Magnesium 2.0 mg/dL (1.6-2.4); Potassium 4.5 mEq/L (3.5-5.1)
[2024-11-16] MEDS: POTASS/SODIUM PHOSPHATE 1 PKT POWD.PACK PO SCH (07:00)
[2024-11-16] MEDS: ASPIRIN 81 MG CHEWABLE TABLET PO SCH (08:50)
[2024-11-16] MEDS ORDERED: ASPIRIN 81 MG CHEWABLE TABLET PO SCH (09:00)
[2024-11-16] MEDS: SODIUM PHOSPHATE 15 MM in NA CHLORIDE 0.9% 250 ML IV ONE (09:00)
--- NOTE | 2024-11-16 10:10 | P.PN ---
Subjective Date of Service: 11/16/24 Chief Complaint: Chest pain Doing well. No acute events overnight. Chest pain-free. Patient endorses mild discomfort on deep breathing. Right radial artery and right groin access sites C/D/I with no hematoma. Physical Examination - Vital Signs Temperature: 97.9 F Blood Pressure: 122/78 Pulse: 74 Respirations: 20 Pulse Ox (%): 100 - Physical Exam General: Alert, In no apparent distress, Oriented x3 HEENT: Atraumatic, Normocephalic, EOMI Neck: JVD not distended Respiratory: Clear to auscultation bilaterally Cardiovascular: No edema, Normal S1 S2, No murmurs Capillary refill: <2 Seconds Gastrointestinal: Normal bowel sounds Musculoskeletal: No clubbing, No swelling Integumentary: No rashes Neurological: Normal speech - Studies Laboratory Data (last 24 hrs) 11/15/24 11/15/24 11/15/24 14:14 14:14 14:14 WBC 5.70 Hgb 12.3 L Hct 37.5 L Plt Count 249 PT 12.2 INR 1.08 APTT 28.1 Sodium Potassium BUN Creatinine Glucose Magnesium Total Bilirubin AST ALT Alkaline Phosphatase Lipase 11/15/24 14:14 WBC Hgb Hct Plt Count PT INR APTT Sodium 139 Potassium 3.4 L BUN 22 H Creatinine 0.97 Glucose 136 H Magnesium 1.9 Total Bilirubin 0.5 AST 24 ALT 24 Alkaline Phosphatase 77 Lipase 32 Imagings Data: Post cath ECG reviewed Assessment And Plan - Current Problems (Diagnosis) (1) NSTEMI (non-ST elevated myocardial infarction) Current Visit: Yes Status: Acute Plan: Culprit distal RCA subtotal thrombotic occlusion, S/P PCI with KELSEY x 1 (Synergy 3.5 x 20 mm; postdilated with 3.75 NC balloon). DAPT with aspirin 81 mg daily and ticagrelor 90 mg twice daily for 1 year. Start metoprolol succinate 25 mg daily. Obtain lipid panel, TSH, A1c. Obtain echocardiogram. (2) Hypertension Current Visit: Yes Status: Chronic Plan: Controlled. Chronic. May resume home lisinopril. (3) Hyperlipidemia Current Visit: Yes Status: Acute Plan: Chronic. On atorvastatin at home. Obtain lipid profile and A1c. Increase home dose of atorvastatin to 80 mg daily for now.
[2024-11-16] MEDS: METOPROLOL XL 25 MG TAB PO SCH (20:36)
[2024-11-16] MEDS: ATORVASTATIN 80 MG TAB PO SCH (20:36)
[2024-11-17 07:11] LABS: Absolute Lymphocytes (CBC) 1.3 K/uL (0.7-4.9); Hematocrit 36.8 % (39.6-49.0); Hemoglobin 12.3 g/dL (13.6-17.9); MCH 28.7 pg (27.0-35.0); MCHC 33.4 g/dL (32.0-36.0); MCV 86.1 fL (80-100); MPV 9.3 fL (7.6-11.3); Nucleated RBC Absolute Count 0.0 (0-0); Nucleated Red Blood Cells % 0.0 % (0-0); RBC Red Blood Cell Count 4.27 M/uL (4.33-5.43); White Blood Count 5.50 thou/uL (4.3-10.9)
[2024-11-17 07:49] LABS: ALT/SGPT 25.0 U/L (16-61); AST/SGOT 21.0 U/L (15-37); Albumin 3.5 g/dL (3.4-5.0); Albumin/Globulin Ratio 1.1 (1.1-1.8); Alkaline Phosphatase 75.0 U/L (45-117); Anion Gap 8.8 mEq/L (5.0-15.0); BUN Blood Urea Nitrogen 13.0 mg/dL (7-18); Globulin 3.2 g/dL (2.3-3.5); Glucose Level 94.0 mg/dL (74-106); Magnesium 1.8 mg/dL (1.6-2.4); NT PRO-BNP 304.0 pg/mL (<125); Potassium 3.8 mEq/L (3.5-5.1)
[2024-11-17 07:54] LABS: Troponin High Sensitivity 1350.9 pg/mL (<58.9)
--- NOTE | 2024-11-17 11:45 | P.PN ---
Subjective Date of Service: 11/17/24 Chief Complaint: Chest pain Doing well. No acute events overnight. Transferred out of the ICU. Remains chest pain-free. Right radial artery and right groin access sites C/D/I with no hematoma. Physical Examination - Vital Signs Temperature: 98.0 F Blood Pressure: 123/72 Pulse: 53 Respirations: 14 Pulse Ox (%): 99 - Physical Exam General: In no apparent distress, Oriented x3 HEENT: Atraumatic, Normocephalic, EOMI Neck: JVD not distended Respiratory: Clear to auscultation bilaterally Cardiovascular: No edema, Normal S1 S2, No murmurs Capillary refill: <2 Seconds Gastrointestinal: Normal bowel sounds Musculoskeletal: No clubbing, No swelling Integumentary: No rashes Neurological: Normal speech - Studies Reviewed Imagings Data: Reviewed Assessment And Plan - Current Problems (Diagnosis) (1) NSTEMI (non-ST elevated myocardial infarction) Current Visit: Yes Status: Acute Plan: Cardiac cath 11/15/2024 showed culprit distal RCA subtotal thrombotic occlusion, S/P PCI with KELSEY x 1 (Synergy 3.5 x 20 mm; postdilated with 3.75 NC balloon). DAPT with aspirin 81 mg daily and ticagrelor 90 mg twice daily for 1 year. Continue metoprolol succinate 25 mg daily. Obtain lipid panel, TSH, A1c. Follow-up echocardiogram. (2) Hypertension Current Visit: Yes Status: Chronic Plan: Controlled. Chronic. May resume home lisinopril if patient becomes hypertensive. (3) Hyperlipidemia Current Visit: Yes Status: Acute Plan: Chronic. On atorvastatin at home. Obtain lipid profile and A1c. Continue atorvastatin to 80 mg daily for now.
[2024-11-17 12:47] LABS: HDL Cholesterol 44.0 mg/dL (40-60); LDL Cholesterol, Calculated 49.0 mg/dL (<130); LDL Cholesterol,Calc NonReport 49.0; Thyroid Stimulating Hormone 1.14 uIU/mL (0.358-3.740)
[2024-11-17] MEDS: MAGNESIUM SULFATE 1 gm IVPB 1 GM/100 ML BAG IV ONE (14:02)
[2024-11-17] MEDS: POTASSIUM CL SA 10 MEQ TAB PO ONE (14:03)
[2024-11-18 07:16] LABS: Absolute Lymphocytes (CBC) 1.3 K/uL (0.7-4.9); Hematocrit 39.7 % (39.6-49.0); Hemoglobin 13.5 g/dL (13.6-17.9); MCH 29.1 pg (27.0-35.0); MCHC 33.9 g/dL (32.0-36.0); MCV 85.8 fL (80-100); MPV 9.3 fL (7.6-11.3); Nucleated RBC Absolute Count 0.0 (0-0); Nucleated Red Blood Cells % 0.1 % (0-0); RBC Red Blood Cell Count 4.63 M/uL (4.33-5.43); White Blood Count 5.20 thou/uL (4.3-10.9)
[2024-11-18 07:46] LABS: ALT/SGPT 23.0 U/L (16-61); AST/SGOT 19.0 U/L (15-37); Albumin 3.9 g/dL (3.4-5.0); Albumin/Globulin Ratio 1.2 (1.1-1.8); Alkaline Phosphatase 86.0 U/L (45-117); Anion Gap 8.2 mEq/L (5.0-15.0); BUN Blood Urea Nitrogen 17.0 mg/dL (7-18); Globulin 3.3 g/dL (2.3-3.5); Glucose Level 103.0 mg/dL (74-106); Potassium 4.2 mEq/L (3.5-5.1)
--- NOTE | 2024-11-18 08:28 | P.PN ---
Subjective Date of Service: 11/18/24 Chief Complaint: Chest pain No acute events overnight. Remains chest pain-free. Right radial artery and right groin access sites C/D/I with no hematoma. Echo pending. Physical Examination - Vital Signs Temperature: 98.1 F Blood Pressure: 134/61 Pulse: 64 Respirations: 18 Pulse Ox (%): 99 - Physical Exam General: Alert, Oriented x3 HEENT: Atraumatic, Normocephalic Neck: JVD not distended Respiratory: Clear to auscultation bilaterally Cardiovascular: No edema, Regular rate/rhythm, Normal S1 S2, No murmurs Capillary refill: <2 Seconds Gastrointestinal: Normal bowel sounds Musculoskeletal: No clubbing, No swelling Integumentary: No rashes Neurological: Normal speech - Studies Reviewed Imagings Data: Reviewed Medications List Reviewed: Yes Assessment And Plan - Current Problems (Diagnosis) (1) NSTEMI (non-ST elevated myocardial infarction) Current Visit: Yes Status: Acute Plan: Cardiac cath 11/15/2024 showed culprit distal RCA subtotal thrombotic occlusion, S/P PCI with KELSEY x 1 (Synergy 3.5 x 20 mm; postdilated with 3.75 mm NC balloon). DAPT with aspirin 81 mg daily and ticagrelor 90 mg twice daily for 1 year. Atorvastatin 40 mg daily. Metoprolol succinate 25 mg daily. Cardiac rehab as outpatient. Follow-up echocardiogram, following which patient may be discharged home and follow-up with me in 1-2 weeks. (2) Hypertension Current Visit: Yes Status: Chronic Plan: Controlled. Chronic. May resume home lisinopril if patient becomes hypertensive. (3) Hyperlipidemia Current Visit: Yes Status: Acute Plan: Chronic. Atorvastatin 40 mg daily. - Plan Dispo: Discharge home after echo today.
[2024-11-18 09:59] VITALS: O2SAT 99
[2024-11-18 12:46] VITALS: BP 136/83; TEMP 98.5
[2024-11-18] MEDS ORDERED: ATORVASTATIN 40 MG TAB PO SCH (21:00)
== END 2024-11-18 11:53 | disposition home or self-care (01) | DRG 322 ==
LOC: ER 13:56 → 3RD-ICU 16:32 → 2ND 11-16 15:10
PROVIDERS: ADMIT Internal Medicine; ATTEND Hospitalist
PROC: 027034Z Dilation of Coronary Artery, One Artery with Drug-eluting Intraluminal Device, Percutaneous Approach (ICD-10-PCS; principal; 2024-11-15)
PROC: 02704ZZ Dilation of Coronary Artery, One Artery, Percutaneous Endoscopic Approach (ICD-10-PCS; 2024-11-15)
PROC: 4A023N7 Measurement of Cardiac Sampling and Pressure, Left Heart, Percutaneous Approach (ICD-10-PCS; 2024-11-15)
PROC: B2111ZZ Fluoroscopy of Multiple Coronary Arteries using Low Osmolar Contrast (ICD-10-PCS; 2024-11-15)
DX: I21.4 Non-ST elevation (NSTEMI) myocardial infarction (principal); I10 Essential (primary) hypertension; E87.6 Hypokalemia; E78.00 Pure hypercholesterolemia, unspecified; I25.2 Old myocardial infarction; I25.10 Atherosclerotic heart disease of native coronary artery without angina pectoris; Z95.1 Presence of aortocoronary bypass graft; Z79.899 Other long term (current) drug therapy; Z87.891 Personal history of nicotine dependence
CPT/HCPCS: 36415; 71045; 76937; 80048; 80053; 80061; 80076; 81003; 83036; 83690; 83735; 83880; 84100; 84443; 84484; 85025; 85347; 85610; 85730; 93005; 93306; 93458; 94760; 96361; 96374; 99152; 99153; 99285; C1725; C1887; C1893; C9600; J0461; J1644; J2003; J2250; J2371; J2405; J2470; J3010; J3475; J3480; J7030; J7040; J7050; Q9967